=== PATIENT | male | born 1965 | race Two or more races ===

== ENCOUNTER 2017-01-20 11:05 | Day surgery (SDC) | payer BC ==
[~2017-01-20] VITALS: Ht 170.2 cm; Wt 99.2 kg
[2017-01-20 11:24] VITALS: Ht 170.2 cm; Wt 99.2 kg
[2017-01-20] MEDS ORDERED: LISI-313 PO (11:35)
[2017-01-20] MEDS ORDERED: HUMULIN (11:35)
[2017-01-20] MEDS ORDERED: NOVOLOG (11:35)
[2017-01-20] MEDS ORDERED: LINA72CA PO (11:35)
[2017-01-20] MEDS ORDERED: OMEG-80 PO (11:35)
[2017-01-20] MEDS ORDERED: [UNRECOGNIZED DRUG - OTHER] (11:35)
[2017-01-20] MEDS ORDERED: DEXL60CA2 PO (11:35)
[2017-01-20] MEDS ORDERED: ATOR40TA68 PO (11:35)
[2017-01-20] MEDS ORDERED: JANUMET (11:35)
[2017-01-20 12:02] VITALS: BP 149/75; PULSE 76; RESP 17
[2017-01-20 12:26] VITALS: BP 112/53; PULSE 57; RESP 25
--- NOTE | 2017-01-20 12:31 | OPPN ---
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
--- NOTE | 2017-01-20 12:31 | OPPN ---
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
[2017-01-20] MEDS ORDERED: PROPOFOL 40 ML ONE (12:47)
[2017-01-20 12:52] VITALS: RESP 14
[2017-01-20 13:37] VITALS: BP 129/92; RESP 14
--- NOTE | 2017-01-21 08:39 | GILP ---
DATE OF PROCEDURE: PROCEDURE: Colonoscopy. INDICATION: A 51-year-old male undergoing this procedure for colon cancer screening. The risks of the procedure, related and unrelated complications, anesthetic risks, alternatives discussed. Infor med consent was obtained. DESCRIPTION OF PROCEDURE: Patient was brought to the GI lab, sedated by the anesthesiologist. Afte r sedation, scope was passed with much ease into rectum, advanced through sigmoid, descending, transverse colon all the way into cecum. Appendiceal orifice and IC valve identified. While comin g out, mucosa thoroughly inspected. There was AVM identified in the descending colon and also in th e sigmoid colon. Each one was about 1 cm in diameter. The rest of the colon appeared normal. A sm all hemorrhoid seen. The patient tolerated the procedure very well. IMPRESSION: 1. 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 2. Negative all the way into cecum. 3. Small hemorrhoids. PLAN: Stay on high fiber diet. Next colonoscopy after 10 years. Dictated By: CASSANDRA HAUSER/LARS Conf#: [id number] DID#: [id number]
== END 2017-01-20 15:53 | disposition home or self-care (01) ==
LOC: GIL 11:05
PROVIDERS: ATTEND Internal Medicine Gastroenterology
DX: Z12.11 Encounter for screening for malignant neoplasm of colon (principal); E11.9 Type 2 diabetes mellitus without complications; I10 Essential (primary) hypertension; E78.5 Hyperlipidemia, unspecified; K64.9 Unspecified hemorrhoids
CPT/HCPCS: 45378; 82962; Z7610